=== PATIENT | female | born 1975 | race Caucasian/White ===

== ENCOUNTER 2019-04-22 01:56 | Emergency (ER) | payer SELFPAY ==
[~2019-04-22] VITALS: Ht 167.6 cm; Wt 50.8 kg
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
[2019-04-22] MEDS ORDERED: ONDANSETRON 4 MG (ZOFRAN) ORAL DISSOLVE TAB SL STA (02:49)
[2019-04-22] MEDS ORDERED: KETOROLAC 30 MG/ML VIAL IM STA (02:49)
[2019-04-22 03:06] LABS: BILIRUBIN,URINE NEGATIVE (NEGATIVE); CLARITY,URINE CLEAR; COLOR,URINE YELLOW; GLUCOSE, URINE (UA) NEGATIVE (NEGATIVE); KETONES,URINE 1+ (NEGATIVE); LEUKOCYTE ESTERASE ,URINE 1+ (NEGATIVE); NITRITE,URINE NEGATIVE (NEGATIVE); PH,URINE 6 (5-9); PROTEIN,URINE 2+ (NEGATIVE); UROBILINOGEN,URINE NORMAL (NORMAL)
[2019-04-22 03:07] VITALS: BP 142/98
[2019-04-22 03:07] LABS: HCG,QUALITATIVE URINE NEGATIVE (NEGATIVE)
[2019-04-22 03:13] LABS: BACTERIA,URINE TRACE /HPF; RBC,URINE RARE /HPF; WBC,URINE RARE /HPF
[2019-04-22 03:20] LABS: AMPHETAMINE SCREEN, URINE POSITIVE (NEGATIVE); BARBITURATE SCREEN URINE NEGATIVE (NEGATIVE); BENZODIAZEPINES SCREEN URINE NEGATIVE (NEGATIVE); CANNABINOID SCREEN, URINE NEGATIVE (NEGATIVE); COCAINE SCREEN URINE NEGATIVE (NEGATIVE); METHADONE STAT NEGATIVE (NEGATIVE); METHAMPHETAMINE SCREEN URINE S POSITIVE (NEGATIVE); OPIATE SCREEN URINE NEGATIVE (NEGATIVE); OXYCODONE STAT NEGATIVE (NEGATIVE); PROPOXYPHENE STAT NEGATIVE (NEGATIVE); TRICYCLIC ANTIDEPRESSANTS SCRE NEGATIVE (NEGATIVE)
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
[2019-04-22 04:06] VITALS: BP 142/98
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
== END 2019-04-22 04:08 | disposition home or self-care (01) ==
LOC: EDUNIT# 01:56 → ER 01:58
DX: S10.93XA Contusion of unspecified part of neck, initial encounter (principal); J44.9 Chronic obstructive pulmonary disease, unspecified; E03.9 Hypothyroidism, unspecified; R40.2142 Coma scale, eyes open, spontaneous, at arrival to emergency department; R40.2252 Coma scale, best verbal response, oriented, at arrival to emergency department; R40.2362 Coma scale, best motor response, obeys commands, at arrival to emergency department; F17.210 Nicotine dependence, cigarettes, uncomplicated; Y04.8XXA Assault by other bodily force, initial encounter
CPT/HCPCS: 72170; 72220; 80306; 81000; 84703

== ENCOUNTER 2020-02-19 11:53 | Emergency (ER) | payer OTHER ==
[~2020-02-19] VITALS: Ht 167.7 cm; Wt 52.3 kg
[2020-02-19 12:07] VITALS: BP 118/74
[2020-02-19] MEDS ORDERED: BACI28.4 TP (12:11)
[2020-02-19] MEDS ORDERED: LD5O35 TP (12:11)
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
== END 2020-02-19 12:20 | disposition home or self-care (01) ==
LOC: EDUNIT# 11:53 → ER 11:54
DX: T25.122A Burn of first degree of left foot, initial encounter (principal); Z88.2 Allergy status to sulfonamides; X12.XXXA Contact with other hot fluids, initial encounter
CPT/HCPCS: 99282